=== PATIENT | male | born 1945 | race Caucasian/White ===

== ENCOUNTER 2019-07-28 21:52 | Emergency (ER) | payer MEDICARE, MEDICAID ==
[~2019-07-28] VITALS: Ht 172.7 cm; Wt 81.6 kg
[2019-07-28 21:55] VITALS: BP_SYST 129
--- NOTE | 2019-07-28 22:05 | NUR ---
Patient triaged and placed in waiting room. VSS and patient appears in no acute distress at this time. Accompanied by daughter, awaiting available bed, and MD notified of need for MSE.
--- NOTE | 2019-07-28 22:28 | NUR ---
Patient to ER bed 4 to gown for evaluation. Side rails up. Report given to ARIANA Gonzalez.
[2019-07-28 22:34] LABS: BASOPHILS # (AUTO) 0.1 K/uL (0.0-0.2); BASOPHILS % (AUTO) 0.6 % (0.0-2.0); EOSINOPHILS # (AUTO) 0.3 K/uL (0.0-0.4); EOSINOPHILS % (AUTO) 2.3 % (0.0-4.0); HEMATOCRIT 39.8 % (36-54); HEMOGLOBIN 13.5 g/dL (14.0-18.0); LYMPHOCYTES # (AUTO) 2.2 K/uL (1.0-5.5); LYMPHOCYTES % (AUTO) 17.4 % (20.5-51.5); MEAN CORPUSCULAR HEMOGLOBIN 32 pg (27-31); MEAN CORPUSCULAR HGB CONC 34 % (32-36); MEAN CORPUSCULAR VOLUME 96 fL (79.0-98.0); MONOCYTES # (AUTO) 1.2 K/uL (0.0-1.0); MONOCYTES % (AUTO) 9.4 % (1.7-9.3); NEUTROPHILS # (AUTO) 8.8 K/uL (1.8-7.7); NEUTROPHILS % (AUTO) 70.3 % (40.0-70.0); PLATELET COUNT (AUTO) 182 K/uL (130-430); RED BLOOD CELL COUNT(AUTO) 4.16 MIL/uL (4.2-6.2); RED CELL DISTRIBUTION WIDTH 13.9 % (9.0-15.0); WHITE BLOOD COUNT (AUTO) 12.5 K/uL (4.8-10.8)
[2019-07-28 22:45] LABS: ANION GAP 10 (5-15); CALCIUM 7.5 mg/dL (8.4-11.0); CHLORIDE 101 mmol/L (98-107); CREATININE 0.95 mg/dL (0.55-1.30); GLUCOSE 115 mg/dL (70-99); POTASSIUM 3.5 mmol/L (3.5-5.1); SODIUM SERUM 136 mmol/L (136-145); UREA NITROGEN, BLOOD 9 mg/dL (8-21)
--- NOTE | 2019-07-28 22:45 | NUR ---
Pt is a 73 y/o male who presents to the ED for eval of SOB for the past two days. Pt states that he gets SOB exacerbates when he walks. Pt further reports that he has had productive yellow sputume for past two days. Pt also states he has midsternal chest pain that he rates as a 1/10 at this time which he describes as pressure and exacerbates when coughing. Pt denies taking any medications. NKDA. Pt denies hx of diabetes, htn, denies fever, or any other complaints. Will cont to monitor pt.
[2019-07-28 22:49] LABS: INR 1.1 (0.80-1.20); PROTHROMBIN TIME 10.9 SECS (9.5-12.5)
--- NOTE | 2019-07-28 22:50 | NUR ---
ER Dr. Stevenson at bedside examining patient.
[2019-07-28 22:53] LABS: ALANINE AMINOTRANSFERASE 21 U/L (12-78); ALBUMIN 3.6 g/dL (3.4-4.8); ASPARTATE AMINOTRANSFERASE 24 U/L (10-37); TOTAL BILIRUBIN 0.8 mg/dL (0.0-1.0)
[2019-07-28] MEDS ORDERED: NACL 0.9% 1,000 ML IV ONE (22:58)
[2019-07-28] MEDS ORDERED: IOHEXOL 350 mgI/mL, 150 ML INFUS..BTL IV ONE (23:27)
--- NOTE | 2019-07-28 23:42 | NUR ---
Pt to radiology via wheelchair. No signs of acute distress or discomfort noted. Will cont to monitor.
[2019-07-29] MEDS ORDERED: ONDANSETRON HCL 4 MG/2 ML VIAL IVP ONE
--- NOTE | 2019-07-29 | NUR ---
Pt returned from radiology via wheelchair. No signs of acute distress or discomfort noted. Will cont to monitor pt.
--- NOTE | 2019-07-29 01:30 | NUR ---
Pt in bed with eyes open talking on the phone. No signs of acute distress or discomfort noted. Will cont to monitor pt.
--- NOTE | 2019-07-29 01:57 | NUR ---
ER Dr. Stevenson at bedside speaking with patient.
[2019-07-29 02:09] VITALS: BP_SYST 129
--- NOTE | 2019-07-29 02:09 | NUR ---
Patient given written and verbal discharge instructions and verbalizes understanding. ER MD Dr. Stevenson discussed with patient the results and treatment provided. Patient in stable condition. ID arm band removed. IV catheter removed intact and dressing applied, no active bleeding. Patient educated on pain management and to follow up with PMD 2-3 days. Pain Scale 0/10. Opportunity for questions provided and answered. Medication side effect fact sheet provided.
== END 2019-07-29 02:09 | disposition home or self-care (01) ==
LOC: SED 21:52
DX: J40 Bronchitis, not specified as acute or chronic (principal)
CPT/HCPCS: 36415; 71045; 71275; 80053; 83605; 83880; 84484; 85025; 85379; 85610; 85730; 87040; 93005; 96374; 99284; J2405; J7030; Q9967

== ENCOUNTER 2021-05-05 17:17 | Emergency (ER) | payer OTHER, MEDICAID ==
[~2021-05-05] VITALS: Ht 172.7 cm; Wt 81.6 kg
[2021-05-05 17:30] VITALS: BP_SYST 169
[2021-05-05 18:30] VITALS: BP_SYST 140
== END 2021-05-05 18:30 | disposition home or self-care (01) ==
LOC: SED 17:17
DX: I10 Essential (primary) hypertension (principal)
CPT/HCPCS: 99281